=== PATIENT | male | born 1990 | race Caucasian/White ===

== ENCOUNTER 2017-09-22 07:52 | Emergency (ER) | payer MEDICAID ==
[~2017-09-22] VITALS: Ht 182.9 cm; Wt 59.1 kg
[2017-09-22] MEDS ORDERED: normal saline 1000ml 1,000 ML IV STA (08:10)
[2017-09-22] MEDS ORDERED: ondansetron/PF 4mg/2ml inj IV STA (08:10)
[2017-09-22] MEDS ORDERED: diphenhydrAMINE 50 mg/ml inj IV STA (08:10)
[2017-09-22 08:20] LABS: BASOPHILS # (AUTO) 0.1 X10'3 (0-0.2); BASOPHILS % (AUTO) 0.3 % (0-1); EOSINOPHILS # (AUTO) 0.1 X10'3 (0-0.9); EOSINOPHILS % (AUTO) 0.4 % (0-6); HEMATOCRIT 44.6 % (42.0-52.0); HEMOGLOBIN 15.5 g/dl (14.0-17.9); LYMPHOCYTES # (AUTO) 0.8 X10'3 (1.1-4.8); LYMPHOCYTES % (AUTO) 3.6 % (21-51); MEAN CORPUSCULAR HEMOGLOBIN 30.2 PG (27.0-31.0); MEAN CORPUSCULAR HGB CONC 34.8 % (33.0-36.5); MEAN CORPUSCULAR VOLUME 86.7 FL (78-98); MONOCYTES # (AUTO) 0.6 X10'3 (0-0.9); MONOCYTES % (AUTO) 2.7 % (2-12); NEUTROPHILS # (AUTO) 21.5 X10'3 (1.8-7.7); PLATELET COUNT 270 X10'3 (140-440); RED BLOOD COUNT 5.14 X10'6 (4.70-6.10); RED CELL DISTRIBUTION WIDTH 12.6 % (11.5-14.5); WHITE BLOOD COUNT 23.1 X10'3 (4.5-11.0)
[2017-09-22 08:25] LABS: ALANINE AMINOTRANSFERASE 23 U/L (12-78); ALBUMIN 4.3 G/DL (3.4-5.0); ALBUMIN/GLOBULIN RATIO 1.2 (1.1-1.5); ALKALINE PHOSPHATASE 63 IU/L (46-116); ANION GAP 7 (8-16); ASPARTATE AMINO TRANSFERASE 11 U/L (10-37); BILIRUBIN,TOTAL 0.7 MG/DL (0.1-1.0); BLOOD UREA NITROGEN 17 MG/DL (7-18); BUN/CREATININE RATIO 19.1 (5.4-32.0); CALCIUM 10.1 MG/DL (8.5-10.1); CHLORIDE 101 MMOL/L (99-107); CREATININE 0.89 MG/DL (0.60-1.10); GLUCOSE 122 MG/DL (70-104); POTASSIUM 4.3 MMOL/L (3.5-5.1); SODIUM 139 MMOL/L (135-145); TOTAL CARBON DIOXIDE 31.1 MMOL/L (24-32); eGFR > 90 ML/MIN
[2017-09-22 08:39] LABS: PROTHROMBIN TIME 10.8 SECONDS (9.0-12.0)
[2017-09-22 10:21] LABS: CLARITY,URINE CLEAR (Clear); COLOR,URINE YELLOW (Yellow); GLUCOSE, URINE NEGATIVE (Neg); KETONES,URINE NEGATIVE (Neg); LEUKOCYTE ESTERASE ,URINE NEGATIVE (Neg); NITRITES, URINE NEGATIVE (Neg); OCCULT BLOOD,URINE NEGATIVE (Neg); PROTEIN,URINE NEGATIVE (Neg)
[2017-09-22 10:27] LABS: UA COLLECTION TYPE URINAL
[2017-09-22] MEDS ORDERED: iohexol 300mg/ml 100ml inj. ONE (10:49)
[2017-09-22] MEDS ORDERED: ONDA4TAB9 SL (14:22)
[2017-09-22 14:38] VITALS: BP 112/75
== END 2017-09-22 14:40 | disposition home or self-care (01) ==
LOC: ER 07:53
DX: K52.9 Noninfective gastroenteritis and colitis, unspecified (principal); F12.10 Cannabis abuse, uncomplicated; Z59.0 Homelessness
CPT/HCPCS: 36415; 74177; 80053; 81003; 83605; 85025; 85610; 87040; 96361; 96374; 96375; 99285; J1200; J2405; J7030; Q9967

== ENCOUNTER 2018-05-21 12:00 | Emergency (ER) | payer MEDICAID ==
[~2018-05-21] VITALS: Ht 180.3 cm; Wt 59.1 kg
[~2018-05-21 12:00] MED LIST: CLIN300C85 PO; METO-292 PO; PANT-47 PO
[2018-05-21 12:36] VITALS: BP 137/90
[2018-05-21] MEDS ORDERED: SULF1TAB49 PO (14:47)
[2018-05-21] MEDS ORDERED: sulfamethoxazole/trimethoprim DS (800/160mg) tablet PO ONE (14:50)
== END 2018-05-21 15:45 | disposition home or self-care (01) ==
LOC: ER 12:02
DX: L03.114 Cellulitis of left upper limb (principal); F12.90 Cannabis use, unspecified, uncomplicated; F15.90 Other stimulant use, unspecified, uncomplicated; Z90.49 Acquired absence of other specified parts of digestive tract; Z60.2 Problems related to living alone; Z79.2 Long term (current) use of antibiotics; Z79.899 Other long term (current) drug therapy
CPT/HCPCS: 73090; 73140; 99283

== ENCOUNTER 2018-09-11 08:52 | Emergency (ER) | payer MEDICAID ==
[~2018-09-11] VITALS: Ht 177.8 cm; Wt 67.0 kg
[~2018-09-11 08:52] MED LIST changes: +CLIN-96 PO; -CLIN300C85 PO
[2018-09-11 08:53] VITALS: BP 130/83
[2018-09-11] MEDS ORDERED: LIDOcaine 1% w/epiNEPHrine 1:200,000 30ml vial IM ONE (09:30)
[2018-09-11] MEDS ORDERED: ibuprofen tablet 400 MG TABLET PO ONE (09:40)
[2018-09-11] MEDS ORDERED: ibuprofen 200mg tablet PO ONE (09:40)
== END 2018-09-11 10:00 | disposition home or self-care (01) ==
LOC: ER 08:53
DX: S61.512A Laceration without foreign body of left wrist, initial encounter (principal); F12.90 Cannabis use, unspecified, uncomplicated; F15.90 Other stimulant use, unspecified, uncomplicated; Z90.49 Acquired absence of other specified parts of digestive tract; Z79.899 Other long term (current) drug therapy; W26.0XXA Contact with knife, initial encounter; Y93.89 Activity, other specified; Y92.89 Other specified places as the place of occurrence of the external cause; Y99.9 Unspecified external cause status
CPT/HCPCS: 99282; J3490; 96372; 99283